=== PATIENT | male | born 1975 | race Caucasian/White ===

== ENCOUNTER 2020-01-28 11:25 | Outpatient (CLI) | payer OTHER ==
[2020-01-28 18:12] LABS: BASOPHILS # (AUTO) 0.1 10^3/uL (0.0-0.1); EOSINOPHILS # (AUTO) 0.2 10^3/uL (0.0-0.7); HGB - HEMOGLOBIN 15.4 g/dL (14.0-18.0); LYMPHOCYTES % (AUTO) 32.6 %; MEAN CORPUSCULAR HEMOGLOBIN 30.9 pg (27.0-31.0); MEAN CORPUSCULAR HGB CONC 32.1 g/dL (32.0-36.0); MEAN CORPUSCULAR VOLUME 96.2 fL (80.0-94.0); MEAN PLATELET VOLUME 11.3 fL (7.4-11.4); MONOCYTES # (AUTO) 0.6 10^3/uL (0.0-1.0); MONOCYTES % (AUTO) 9.4 %; NEUTROPHILS # (AUTO) 3.2 10^3/uL (1.5-6.6); NEUTROPHILS % (AUTO) 53.7 %; PLT - PLATELET COUNT 249 10^3/uL (130-450); RED BLOOD COUNT 4.99 10^6/uL (4.70-6.10)
[2020-01-28 18:41] LABS: ALBUMIN 4.4 g/dL (3.2-5.5); ALBUMIN/GLOBULIN RATIO 1.3 (1.0-2.2); ALKALINE PHOSPHATASE 71 IU/L (42-121); ALT ALANINE AMINOTRANSFERASE 80 IU/L (10-60); AST ASPARTATE AMINOTRANSFERASE 41 IU/L (10-42); BUN - BLOOD UREA NITROGEN 18 mg/dL (6-20); CALCIUM 9.5 mg/dL (8.5-10.3); CARBON DIOXIDE - CO2 26 mmol/L (21-32); CHLORIDE 104 mmol/L (101-111); CHOL/HDL RATIO 6.6 (<5.0); CHOLESTEROL 256 mg/dL; CREATININE 1.2 mg/dL (0.6-1.2); GLUCOSE 90 mg/dL (70-100); HDL CHOLESTEROL 39 mg/dL; LDL CHOLESTEROL,CALCULATED 184 mg/dL; LDL/HDL RATIO 4.7 (<3.6); SODIUM 139 mmol/L (135-145); TOTAL PROTEIN 7.8 g/dL (6.7-8.2); VLDL CHOLESTEROL 33 mg/dL
== END 2020-01-28 11:26 | disposition home or self-care (01) ==
LOC: LAB.N 11:25
PROVIDERS: ATTEND Family Medicine
DX: G47.33 Obstructive sleep apnea (adult) (pediatric) (principal); I10 Essential (primary) hypertension; Z12.5 Encounter for screening for malignant neoplasm of prostate
CPT/HCPCS: 36415; 80050; 80061; 83721; 84153

== ENCOUNTER 2020-03-04 16:30 | Outpatient (CLI) | payer OTHER ==
[2020-03-04 17:15] VITALS: BP 148/92
--- NOTE | 2020-03-04 17:15 | SLEEP CARE CONSULTATION ---
Information from patient questionnaire entered by Loan Brown. I have reviewed and concur with the information entered by Loan Brown. This document represents the service I personally performed and the decisions made by me, Krysta Chandler ARNP. History of Present Illness Service Date and Time: 03/04/2020 1630 Reason for Visit: New patient Chief Complaint: reports: Unrefreshed sleep, Snoring, Excessive daytime sleepiness, Observed pauses in breathing, Fatigue, Frequent awakenings at night Date of Onset: 2014 Usual bedtime: 4 AM Time it takes to fall asleep: Couple minutes Snores at night: Yes Observed to quit breathing while asleep: Yes Sleeps alone due to snoring: No Number of times waking at night: 3 to 4 times Reasons for waking at night: reports: Choking, Snoring, Gasping for air, Pain, Bathroom Toss, Turn, or Twitch while sleeping: Yes Recalls having dreams: Yes Usually gets out of bed at: 1 PM Feels refreshed in the morning: No Morning headache: No Sleepy or fatigued during the day: Yes Ever fallen asleep while driving: Yes (no car accidents) Takes day naps: Yes (daily for about 2 hours, sometimes up to 4 hours) Dreams during day naps: Yes Prior sleep studies: No Additional HPI information: I had the pleasure of seeing JOSELO TERRELL today regarding the possibility of him having a sleep disorder. His current complaints are snoring, observed pauses in breathing, frequent night awakenings, unrefreshed sleep, excessive daytime sleepiness and fatigue. [facility] because he is falling asleep during the day and when driving. He has difficulty concentrating. He does snore loudly but his still sleeps in same room. She has told him he is stopping breathing and notes him gasping for air when sleeping. They found some high blood pressure and he is keeping a blood pressure log for his PCP for follow up later this month. 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 Patient is and lives in [place]. Have you smoked in the past 12 months: Yes Quit date: 3 years ago Alcohol use: Yes Alcohol amount and frequency: 6 every day Caffeine use: Yes Caffeine amount and frequency: 2 cups Family History Family history of sleep disordered breathing: No Allergies and Home Medications Drug allergies reviewed: Yes (NKDA) Home medication list reviewed: Yes Allergy and home medication list: Multivitamin Zyrtec Review of Systems Weight gain over past 5 years: 90 Cardiovascular: reports: high blood pressure, leg or foot swelling. denies: irregular heart rate or pulse Respiratory: reports: shortness of breath (more lately, for last year) Gastrointestinal: reports: heartburn (occasional) Urinary: denies: impotence Neurological: denies: headaches, head trauma Psychiatric: denies: anxiety, depression, mood disorder Ear/Nose/Throat: reports: nasal congestion, sinus problems, dry mouth/throat (occasionally), tonsillectomy, wisdom teeth removed Endocrine: reports: sluggishness (tired), too hot or cold (hot) Immunologic: reports: sneezing (runny nose), allergies to food or environment (environment) Physical Exam Blood Pressure: 148/92 Cuff size: large Heart Rate: 99 O2 Saturation: 98 Height: 5 ft 10 in Weight: 329 lb Body Mass Index: 47.2 BMI Classification: Morbidly Obese Neck circumference: 20.75 (inches) Nostrils: patent to airflow Turbinates: swollen Mouth and throat: narrow oropharynx Soft palate: long Hard palate: normal Uvula: normal Uvula visualization: 25% Mallampati Class III Tongue: enlarged in size with teeth corado on lateral edges Tonsils: absent bilaterally Chin and jaw: normal size and position Neck: normal w/o lymphadenopathy or thyromegaly Heart: regular rate and rhythm Lungs: clear bilaterally Impression and Plan 1. Suspected Obstructive Sleep Apnea-Hypopnea Syndrome, as suggested by a history of loud and irregular snoring, observed cessation of breath while asleep, gasping or choking in sleep, frequent awakening during the night, unrefreshed sleep, cognitive impairment, and excessive daytime sleepiness. I reviewed with the patient that a narrow oropharynx and obesity are common predisposing factors for obstructive sleep apnea-hypopnea syndrome. I recommend proceeding to polysomnography to confirm the diagnosis and to assess severity. If the patient has significant sleep disordered breathing, a manual CPAP titration study will also be performed to find the optimal treatment pressure. I informed the patient of what the sleep studies involve and after some discussion, obtained agreement to proceed. The pathophysiology of obstructive sleep apnea-hypopnea syndrome was discussed with the patient and health risks of cardiovascular and cerebrovascular disease if not treated. [facility] brochure for obstructive sleep apnea-hypopnea syndrome given and reviewed. Risks of drowsy driving discussed in detail and patient advised to avoid long distance driving and to insole tack puller hand at the first sign of drowsiness. Patient agreed to plan. [facility] drowsy driving brochure given. * Schedule polysomnography +- manual CPAP titration study and return in 1-2 weeks after the study to discuss result and initiate therapy. * Avoid long distance driving or driving when feeling sleepy. * Avoid alcohol, sedative and muscle relaxant around bedtime. * Attempt to lose weight. * Review instructions provided by trained office staff on how to prepare for the sleep study. * Return for follow-up after sleep study completed. Counseling Topics: Weight loss health impact Visit Type: In Office Time Spent with Patient (minutes): 32 Provider Statement: I spent 100% of the Face to Face Visit with the patient with greater than 50% spent counseling the patient and coordination of care.
== END 2020-03-04 16:31 | disposition home or self-care (01) ==
LOC: SC 16:30
PROVIDERS: ATTEND Nurse Practitioner Family
DX: G47.10 Hypersomnia, unspecified (principal); R41.89 Other symptoms and signs involving cognitive functions and awareness; G47.8 Other sleep disorders; R06.81 Apnea, not elsewhere classified; R06.83 Snoring; E66.01 Morbid (severe) obesity due to excess calories; Z68.42 Body mass index [BMI] 45.0-49.9, adult
CPT/HCPCS: 99203; 99212

== ENCOUNTER 2020-06-07 15:06 | Outpatient (CLI) | payer OTHER | END 2020-06-07 15:07 | disposition home or self-care (01) | LOC: SC 15:06 | PROVIDERS: ATTEND Nurse Practitioner Family | DX: G47.33 Obstructive sleep apnea (adult) (pediatric) (principal); R09.02 Hypoxemia; R00.0 Tachycardia, unspecified; E66.9 Obesity, unspecified; Z68.42 Body mass index [BMI] 45.0-49.9, adult | CPT/HCPCS: 95806 ==

== ENCOUNTER 2020-06-15 09:38 | Outpatient (CLI) | payer OTHER ==
--- NOTE | 2020-06-15 10:03 | SLEEP CARE CONSULTATION ---
Information from patient questionnaire entered by Alejandra Adhikari. I have reviewed and concur with the information entered by Alejandra Adhikari. This document represents the service I personally performed and the decisions made by , Krysta Chandler ARNP. History of Present Illness Service Date and Time: 06/15/2020 0938 Initial [place] Sleepiness Scale score: 17 (in 2020) Current [place] Sleepiness Scale score: 17 Additional HPI information: JOSELO TERRELL returns via Telehealth visit for follow up and results of the recently performed home sleep study. He was found to have extremely severe obstructive sleep apnea with an average AHI of 101.4 and severe hypoxemia with a shaina oxygen saturation of 47%. I explained the pathophysiology behind obstructive sleep apnea. We then spent quite a bit of time discussing different treatment options. For mild obstructive sleep apnea, surgery and oral appliance are alternatives to nasal CPAP therapy but in moderate or severe cases, nasal CPAP is the most effective and reliable treatment. Because apnea is primarily in supine position, then positional management therapy could be effective. Methods discussed such as positioning with pillows, using a T-shirt with tennis balls in the back, and shown commercial products that have a pillow format on back to prevent supine sleep. I reviewed the impact of weight changes on sleep apnea and strongly recommended losing weight. After some discussion, the patient opted to go with the nasal CPAP therapy. Nasal autoCPAP set at 4-15 cmH20 will be ordered with rationale explained. A manual titration study will be ordered if unable to find optimal pressure with office adjustments. I explained how CPAP machine works and what to expect when using the machine. Using CPAP every night in order to get used to it was emphasized. Patient advised to put CPAP mask on before getting into bed so as not to fall asleep without CPAP. To assist acclimation to CPAP use, it could also be used for a short time during day while reading or watching TV. The patient was instructed to call the CPAP supplier to discuss any mechanical problem that may occur. If the mask given is uncomfortable or is difficult to keep on through the night even with adjustment, contact the CPAP supplier as many will replace with another mask style if notified before 30 days. If snoring or perceives is not getting enough air or too much air from the machine, notify this office. Patient counseled not drink alcohol less than 4 hours before bedtime as it can increase snoring and apnea. Patient was cautioned about risks of drowsy driving until sleepiness symptoms resolve. Sleep Study - Results Type of Sleep Study: Home sleep study Prior sleep studies: No Polysomnography/Home Sleep Study results: Physician Impression: The quality of the study is good. The length of the study is adequate (> 240 minutes). Please also see the tabulated and graphic data. 1. Obstructive Sleep Apnea-Hypopnea (ICD-10 G47.33), extremely severe, with an AHI of 101.4/hr and shaina SaO2 of 47%. During the study, the patient had 674 apneas (672 obstructive, 0 central, 2 mixed) and 30 hypopneas. The longest episode lasted 59.5 seconds. The respiratory events occurred more frequently during supine sleep (supine AHI was 102.3 and non-supine, 40.00). 2. Hypoxemia (ICD-10 R09.02), severe, with the lowest oxygen saturation of 47 % and 343.8 minutes with SaO2 under 90%. Baseline oxygen saturation was low (Average oxygen saturation was 79%). 3. Tachycardia, with maximum recorded heart rate of 122 beats per minute. Allergies and Home Medications Home medication list reviewed: Yes (changed to HCTZ for BP; stopped Lisinopril) Review of Systems Review of systems same as previous: Yes (no changes) Physical Exam Vital signs obtained and entered by: Telehealth visit to reduce exposure during Covid pandemic Height: 5 ft 10 in Impression and Plan 1. Obstructive Sleep Apnea-Hypopnea Syndrome, extremely severe, with lowest oxygen saturation of 47%. Obviously this is the cause of the patients symptoms of unrefreshed sleep, and excessive daytime sleepiness. Positive pressure therapy could benefit (possible) hypertension. As mentioned above, the patient will be started on nasal autoCPAP therapy with pressure set at 4-15 cmH2O. A manual titration study will be completed if unable to find optimal treatment pressure with office adjustments. Compliance guidelines also reviewed. A copy of compliance guidelines will be given for reference at check out. Because the apnea is more severe supine, I instructed to avoid sleeping supine using pillow positioning until able to start CPAP use. 2. Hypoxemia, severe, with a shaina of 47% and 343.8 minutes with SaO2 under 90%. His baseline oxygen saturation was an average of 79% during the study. Further evaluation of cause is recommended. 3. Tachycardia, with a maximum recorded heart rate of 122 beats per minute during his HST. Elevated heart rate may be due to apneas but patient may report to PCP for further evaluation as needed. * Urgent setup of Nasal auto CPAP therapy, pressure at 4-15 cm H2O. * Titration study * Follow up with PCP for severe hypoxemia and tachycardia as needed. * Attempt to lose weight. * Avoid alcohol consumption near bedtime. * Avoid supine sleep until using CPAP. * The patient is again cautioned about driving until sleepiness completely resolves. * Return one month after CPAP obtained. I will assess response to therapy and compliance at that time. Counseling Topics: Spare mask, Weight loss health impact Visit Type: Telehealth Video Video Type: VSee Patient Location: Home Location of Provider: Office Patient agrees and consents to this telehealth visit type: Yes Patient agrees to have their insurance billed: Yes Time Spent with Patient (minutes): 13 Provider Statement: I spent 100% of the Telehealth Video Call with the patient with greater than 50% spent counseling the patient and coordination of care.
== END 2020-06-15 09:39 | disposition home or self-care (01) ==
LOC: SC 09:38
PROVIDERS: ATTEND Nurse Practitioner Family
DX: G47.33 Obstructive sleep apnea (adult) (pediatric) (principal); R09.02 Hypoxemia; R00.0 Tachycardia, unspecified

== ENCOUNTER 2020-08-11 14:09 | Outpatient (CLI) | payer OTHER ==
--- NOTE | 2020-08-11 14:46 | SLEEP CARE CONSULTATION ---
Information from patient questionnaire entered by Alejandra Adhikari. I have reviewed and concur with the information entered by Alejandra Adhikari. This document represents the service I personally performed and the decisions made by , Krysta Chandler ARNP. History of Present Illness Service Date and Time: 08/11/2020 1409 Previous diagnosis: Extremely Severe, Obstructive Sleep Apnea-Hypopnea Syndrome AHI: 101.4 (in 2020) Reason for follow up: first compliance Equipment type: CPAP Equipment obtained from: Other ([facility]; got initial supplies, no problems) Mask style: Nasal Backup mask available: No (will keep old mask when replaced) Last cushion change: 2 weeks ago Prior sleep studies: Yes Year and Where: 2020 - [facility] Type of Sleep Study: Home sleep study HPI additional information: JOSELO TERRELL was diagnosed to have extremely severe, AHI 101.4, obstructive sleep apnea-hypopnea syndrome and returned today for CPAP therapy first compliance follow-up. CPAP Compliance Data - Data Reviewed with Patient Average duration of nightly device use: 3 hr 56 min Compliance rate %: 63 Current pressure setting (cmH2O): 4-15 (median 14.4, avg 15.0, max 15.0) Humidity settin Average residual AHI: 8.0 Central apnea: 0.0 Obstructive apnea: 5.4 Average large leak: 19.7 L/min Subjective Patient concerns: reports: mask leak noise, dry mouth, nose, throat (has increased humidity until he got some condensation, then put back). denies: aerophagia, mask discomfort, air blowing in eyes, condensation in mask/hose, nasal congestion, epistaxis, other Observed to snore while using device: No Current pressure setting perceived as: comfortable On therapy, patient: reports: sleeping better, awakening more refreshed, being more awake and alert during the day, more rested overall. denies: drowsiness while driving Initial [place] Sleepiness Scale score: 17 (in 2019) Current [place] Sleepiness Scale score: 2 Allergies and Home Medications Home medication list reviewed: Yes (Lisinopril) Review of Systems Review of systems same as previous: Yes (HTN) Physical Exam Heart Rate: 74 O2 Saturation: 96 Height: 5 ft 10 in Weight: 337 lb Body Mass Index: 48.3 BMI Classification: Morbidly Obese Impression and Plan 1. Obstructive Sleep Apnea-Hypopnea Syndrome, extremely severe, with fair treatment compliance and fair apnea control. On CPAP therapy, the patient has better sleep quality and is more rested overall. The patients pressure will be changed to autoCPAP 15-20 cmH20 for elevation of residual AHI. Patient advised to contact me if pressure change is uncomfortable so that it can be adjusted. Goals for apnea control discussed. Patient has a titration study scheduled for end of August. I will follow up with him after that titration study is completed. Patient feels he is doing well and feels so much better since starting to use his CPAP machine. His compliance is nearly there with slight elevation of his residual AHI. Patient's apnea severity and rationale for treatment to reduce apnea, improve sleep quality and reduce cardiovascular and cerebrovascular events was reviewed. I also reviewed the benefit of consistent device use of CPAP for hypertension. I encourage patient to continue to try to lose weight as this will reduce the severity of his apneas and improve his overall health. He voiced understanding and agreement. * Change auto CPAP pressure to 15-20 cmH2O * Notify me if snoring with mask or feeling that the pressure is too much or too little * Attempt to lose weight * Call this office if any problems using CPAP * Return for follow up after titration study end of August, or sooner if concerns arise Counseling Topics: Spare mask, Weight loss health impact Visit Type: In Office Time Spent with Patient (minutes): 20 Provider Statement: I spent 100% of the Face to Face Visit with the patient with greater than 50% spent counseling the patient and coordination of care.
== END 2020-08-11 14:10 | disposition home or self-care (01) ==
LOC: SC 14:09
PROVIDERS: ATTEND Nurse Practitioner Family
DX: G47.33 Obstructive sleep apnea (adult) (pediatric) (principal); E66.01 Morbid (severe) obesity due to excess calories; Z68.42 Body mass index [BMI] 45.0-49.9, adult
CPT/HCPCS: 99212; 99213

== ENCOUNTER 2020-08-18 08:00 | Outpatient (CLI) | payer OTHER ==
[2020-08-18 18:42] LABS: CALCIUM 9.7 mg/dL (8.5-10.3)
== END 2020-08-18 23:59 | disposition home or self-care (01) ==
LOC: LAB.WCP 08:00
PROVIDERS: ATTEND Nurse Practitioner Family
DX: I10 Essential (primary) hypertension (principal)
CPT/HCPCS: 36415; 80048

== ENCOUNTER 2023-03-28 08:40 | Outpatient (CLI) | payer OTHER ==
[2023-03-28 12:12] LABS: BASOPHILS # (AUTO) 0.1 10^3/uL (0.0-0.1); BASOPHILS % (AUTO) 1.4 %; EOSINOPHILS # (AUTO) 0.2 10^3/uL (0.0-0.7); EOSINOPHILS % (AUTO) 3.9 %; HCT - HEMATOCRIT 45.8 % (42.0-52.0); HGB - HEMOGLOBIN 15.2 g/dL (14.0-18.0); LYMPHOCYTES # (AUTO) 2.3 10^3/uL (1.5-3.5); LYMPHOCYTES % (AUTO) 40.6 %; MEAN CORPUSCULAR HEMOGLOBIN 31.4 pg (27.0-31.0); MEAN CORPUSCULAR HGB CONC 33.2 g/dL (32.0-36.0); MEAN CORPUSCULAR VOLUME 94.6 fL (80.0-94.0); MONOCYTES # (AUTO) 0.5 10^3/uL (0.0-1.0); MONOCYTES % (AUTO) 8.4 %; NEUTROPHILS # (AUTO) 2.6 10^3/uL (1.5-6.6); NEUTROPHILS % (AUTO) 45.5 %; PLT - PLATELET COUNT 244 10^3/uL (130-450); RED BLOOD COUNT 4.84 10^6/uL (4.70-6.10); RED CELL DISTRIBUTION WIDTH 12.2 % (12.0-15.0); WHITE BLOOD COUNT 5.6 x10^3/uL (4.8-10.8)
[2023-03-28 12:59] LABS: ALBUMIN 4.4 g/dL (3.2-5.5); ALBUMIN/GLOBULIN RATIO 1.5 (1.0-2.2); ALKALINE PHOSPHATASE 63 IU/L (42-121); ALT ALANINE AMINOTRANSFERASE 55 IU/L (10-60); AST ASPARTATE AMINOTRANSFERASE 28 IU/L (10-42); BILIRUBIN,TOTAL 0.7 mg/dL (0.2-1.0); BUN - BLOOD UREA NITROGEN 13 mg/dL (6-20); CALCIUM 9.6 mg/dL (8.5-10.3); CARBON DIOXIDE - CO2 26 mmol/L (21-32); CHLORIDE 105 mmol/L (101-111); CHOL/HDL RATIO 5.3 (<5.0); CHOLESTEROL 245 mg/dL; GFR - MDRD 80 (>89); GLUCOSE 94 mg/dL (74-104); HDL CHOLESTEROL 46 mg/dL; LDL CHOLESTEROL,CALCULATED 157 mg/dL; LDL/HDL RATIO 3.4 (<3.6); POTASSIUM 4.1 mmol/L (3.5-4.5); SODIUM 138 mmol/L (135-145); TOTAL PROTEIN 7.3 g/dL (6.4-8.9); TRIGLYCERIDES 209 mg/dL (48-352); VLDL CHOLESTEROL 42 mg/dL
== END 2023-03-28 08:41 | disposition home or self-care (01) ==
LOC: LAB.N 08:40
PROVIDERS: ATTEND Nurse Practitioner
DX: I10 Essential (primary) hypertension (principal); E78.5 Hyperlipidemia, unspecified
CPT/HCPCS: 36415; 80053; 80061; 83721; 85025